=== PATIENT | male | born 1985 | race Native Hawaiian/Other Pacific Islander ===

== ENCOUNTER 2017-04-29 23:54 | Emergency (ER) | payer OTHER ==
[~2017-04-29] VITALS: Ht 177.8 cm; Wt 77.1 kg
[2017-04-30 00:52] LABS: PLATELET COUNT 249 K/uL (142-355)
[2017-04-30 01:13] LABS: POTASSIUM 3.6 mmol/L (3.6-5.2)
[2017-04-30 01:15] VITALS: BP 133/79; TEMP 98.7
== END 2017-04-30 01:21 | disposition home or self-care (01) ==
LOC: ED 23:54
DX: S90.475A Other superficial bite of left lesser toe(s), initial encounter (principal); Y92.098 Other place in other non-institutional residence as the place of occurrence of the external cause
CPT/HCPCS: 36415; 80053; 80307; 81000; 85027; 99282; G0479